=== PATIENT | male | born 1990 | race American Indian/Alaskan Native ===

== ENCOUNTER 2020-12-09 21:25 | Emergency (ER) | payer SELFPAY ==
[2020-12-09 21:36] VITALS: BP 162/81
[2020-12-09] MEDS ORDERED: DIPHtheria,PERTUSSIS(ACELL),TETANUS VACCINE/PF 0.5 ML VIAL IM ONE (21:59)
[2020-12-09] MEDS ORDERED: oxyCODONE /ACETAMINOPHEN 5-325MG TAB PO ONE (21:59)
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
[2020-12-09] MEDS ORDERED: MUPIROCIN 2% OINT 22 GM TP ONE (22:12)
== END 2020-12-09 23:35 | disposition home or self-care (01) ==
LOC: ED 21:25
DX: T31.0 Burns involving less than 10% of body surface (principal); F17.200 Nicotine dependence, unspecified, uncomplicated; Z98.890 Other specified postprocedural states; Z79.899 Other long term (current) drug therapy
CPT/HCPCS: 90471; 90715; 99282